=== PATIENT | female | born 1950 | race Caucasian/White ===

== ENCOUNTER 2018-03-16 20:30 | Outpatient (CLI) | payer BC | END 2018-03-16 20:31 | disposition home or self-care (01) | LOC: SLEEPLAB 20:30 | PROVIDERS: ATTEND Internal Medicine Critical Care Medicine | DX: G47.33 Obstructive sleep apnea (adult) (pediatric) (principal); G47.30 Sleep apnea, unspecified; R53.83 Other fatigue; R06.83 Snoring; G47.61 Periodic limb movement disorder; G47.10 Hypersomnia, unspecified; R94.31 Abnormal electrocardiogram [ECG] [EKG] | CPT/HCPCS: 95810 ==

== ENCOUNTER 2020-08-16 04:14 | Emergency (ER) | payer MEDICARE ==
[2020-08-16] MEDS ORDERED: Ondansetron ODT 8 MG TAB ONE (04:28)
[2020-08-16] MEDS ORDERED: Morphine 10 MG/ML VIAL ONE (04:28)
--- NOTE | 2020-08-16 07:55 | RAD ---
XR Ribs Lt>=2 View W/PA CXR History: Trauma Comparison: None. Findings: Mild biapical pleural scarring. No pneumothorax. Clavicles are intact. Cardiac silhouette and mediastinal contours are relatively normal. Practically nondisplaced left anterior ninth and 10th rib fractures. Impression: Practically nondisplaced left anterior ninth and 10th rib fractures.
== END 2020-08-16 04:57 | disposition home or self-care (01) ==
LOC: ERS 04:14
DX: S20.212A Contusion of left front wall of thorax, initial encounter (principal); K21.9 Gastro-esophageal reflux disease without esophagitis; I10 Essential (primary) hypertension; E03.9 Hypothyroidism, unspecified; Z79.899 Other long term (current) drug therapy; W01.0XXA Fall on same level from slipping, tripping and stumbling without subsequent striking against object, initial encounter
CPT/HCPCS: 96372; J2270; Q0162

== ENCOUNTER 2021-01-20 15:55 | Outpatient (CLI) | payer MEDICARE, BC | END 2021-01-20 15:56 | disposition home or self-care (01) | LOC: BICRAD 15:55 | PROVIDERS: ATTEND Otolaryngology Plastic Surgery within the Head & Neck | DX: R05 Cough (principal) | CPT/HCPCS: 71046 ==

== ENCOUNTER 2021-03-19 10:52 | Outpatient (CLI) | payer MEDICARE, BC | END 2021-03-19 10:53 | disposition home or self-care (01) | LOC: BICRAD 10:52 | PROVIDERS: ATTEND Internal Medicine Critical Care Medicine | DX: R06.00 Dyspnea, unspecified (principal) | CPT/HCPCS: 71046 ==

== ENCOUNTER 2022-07-29 11:59 | Observation (INO) | payer MEDICARE, BC ==
[2022-07-29 12:44] LABS: #Lymphocytes 0.6 thou/uL (1.20-3.40); #Monocytes 0.4 thou/uL (0.11-0.59); #Neutrophils 5.5 thou/uL (1.40-6.50); %Basophils 0.3 % (0.0-1.0); %Eosinophils 0.1 % (0.0-10.0); %Lymphocytes 9.2 % (21.0-51.0); %Neutrophils 84.5 % (42.0-75.0); Hemoglobin 12.9 g/dL (12.0-16.0); Mean Corpuscular HGB CONC 33.1 g/dL (32.0-36.0); Mean Corpuscular Hemoglobin 31.1 pg (27.0-31.0); Mean Corpuscular Volume 94.2 fl (78.0-98.0); Platelet Count 213 10x3/uL (130-400); RBC Distribution Width 12.4 % (11.5-14.5); Red Blood Cell (RBC) Count 4.15 mill/uL (4.20-5.40); White Blood Cell (WBC) Count 6.6 10x3/uL (4.8-10.8)
[2022-07-29 13:02] LABS: ALT (SGPT) 23 U/L (8-55); AST (SGOT) 25 U/L (5-34); Albumin 3.6 g/dL (3.4-4.8); Alkaline Phosphatase 59 U/L (40-110); Anion Gap 9 mmol/L (10-20); BUN (Urea Nitrogen) 12 mg/dL (9.8-20.1); Bilirubin, Total 0.7 mg/dL (0.2-1.2); Calc. Creatinine Clearance 0 mL/min (70-130); Calcium 8.9 mg/dL (7.8-10.44); Carbon Dioxide 24 mmol/L (23-31); Chloride 103 mmol/L (98-107); Estimated GFR 80; Globulin 3.2 g/dL (2.4-3.5); Glucose 134 mg/dL (80-115); Potassium 4.2 mmol/L (3.5-5.1); Protein, Total 6.8 g/dL (5.8-8.1); Sodium 132 mmol/L (136-145)
[2022-07-29 13:58] LABS: Bilirubin Negative (Negative); Blood, Urine Negative (Negative); Glucose, Urine (Dipstick) Negative (Negative); Ketone, Urine Trace mg/dL (Negative); Leukocyte Negative (Negative); Nitrite Negative (Negative); Protein, Urine (Dipstick) Negative (Neg-Trace); Specific Gravity, Urine 1.015 (1.005-1.030); Urobilinogen 0.2 mg/dL (Less than 2)
[2022-07-29 14:01] LABS: Clarity Clear (Clear)
[2022-07-29] MEDS ORDERED: Acetaminophen 325 MG TAB PO PRN (15:35)
[2022-07-29] MEDS ORDERED: Senokot S 8.6-50 MG TAB PO PRN (15:35)
[2022-07-29 17:21] VITALS: BMI 25.3
[2022-07-29] MEDS: Sodium Chloride 0.9% 1,000 ML IV SCH (18:06)
[2022-07-29 18:11] LABS: Troponin I Less than 0.010 ng/mL (< 0.028)
[2022-07-29 20:43] LABS: Troponin I Less than 0.010 ng/mL (< 0.028)
[2022-07-29] MEDS ORDERED: Famotidine 20 MG TAB PO SCH (21:00)
[2022-07-30 05:16] LABS: #Eosinphils 0.1 thou/uL (0.0-0.7); #Lymphocytes 0.9 thou/uL (1.20-3.40); #Monocytes 0.4 thou/uL (0.11-0.59); %Basophils 0.3 % (0.0-1.0); %Eosinophils 1.6 % (0.0-10.0); %Lymphocytes 27.2 % (21.0-51.0); %Monocytes 11.5 % (0.0-10.0); %Neutrophils 59.4 % (42.0-75.0); Mean Corpuscular HGB CONC 33.1 g/dL (32.0-36.0); Mean Corpuscular Hemoglobin 30.9 pg (27.0-31.0); Mean Corpuscular Volume 93.4 fl (78.0-98.0); Mean Platelet Volume 7.1 fL (7.4-10.4); Platelet Count 176 10x3/uL (130-400); RBC Distribution Width 12.6 % (11.5-14.5); White Blood Cell (WBC) Count 3.3 10x3/uL (4.8-10.8)
[2022-07-30 05:39] LABS: Anion Gap 10 mmol/L (10-20); BUN (Urea Nitrogen) 11 mg/dL (9.8-20.1); Calc. Creatinine Clearance 72 mL/min (70-130); Carbon Dioxide 23 mmol/L (23-31); Cardiac Risk 3.1 (Less than 4.5); Chloride 108 mmol/L (98-107); Cholesterol 110 mg/dl (< 200 Desired); Estimated GFR 87; Glucose 97 mg/dL (80-115); HDL Cholesterol 35 mg/dL (>60 Neg Risk); LDL Cholesterol, Calculated 59 mg/dL; Potassium 3.8 mmol/L (3.5-5.1); Sodium 137 mmol/L (136-145); Triglycerides 81 mg/dL (Less than 150)
[2022-07-30] MEDS: Sodium Chloride 0.9% 1,000 ML IV SCH (07:17)
[2022-07-30] MEDS ORDERED: Levothyroxine Sodium 25 MCG TAB PO SCH (08:45)
[2022-07-30] MEDS ORDERED: Aspirin 81 mg Enteric Coated Tablet PO SCH (09:00)
[2022-07-30] MEDS ORDERED: Enoxaparin Sodium 40 MG/0.4 ML SYRINGE SC SCH (09:00)
[2022-07-30] MEDS ORDERED: Montelukast Sodium 10 mg Tablet PO SCH (09:00)
[2022-07-30] MEDS ORDERED: Magnevist 469MG/ML 20 ML VIAL ONE (10:55)
[2022-07-30 15:50] VITALS: BP 134/62; TEMP 98.4
[2022-07-30] MEDS ORDERED: Atorvastatin Calcium 20 MG TAB PO SCH (21:00)
[2022-07-31] MEDS ORDERED: Levothyroxine Sodium 25 MCG TAB PO SCH (06:00)
== END 2022-07-30 16:30 | disposition home or self-care (01) ==
LOC: ERS 11:59 → 2SW 14:55
PROVIDERS: ADMIT Family Medicine; ATTEND Family Medicine
DX: R55 Syncope and collapse (principal); E87.1 Hypo-osmolality and hyponatremia; I10 Essential (primary) hypertension; E03.9 Hypothyroidism, unspecified; E78.5 Hyperlipidemia, unspecified; K21.9 Gastro-esophageal reflux disease without esophagitis; Z79.82 Long term (current) use of aspirin; Z79.890 Hormone replacement therapy; Z79.899 Other long term (current) drug therapy; Z20.822 Contact with and (suspected) exposure to COVID-19
CPT/HCPCS: 70551; 70552; 71045; 80048; 80053; 80061; 81003; 82533; 84443; 84484 ×2; 85025 ×2; 93005; 93880; 99285; U0003; U0005; 36415; A9579; G0378; J7050

== ENCOUNTER 2023-06-24 10:48 | Emergency (ER) | payer MEDICARE, BC ==
[2023-06-24 11:56] LABS: #Monocytes 0.5 thou/uL (0.11-0.59); #Neutrophils 5.9 thou/uL (1.40-6.50); %Basophils 0.4 % (0.0-1.0); %Eosinophils 0.1 % (0.0-10.0); %Lymphocytes 9.1 % (21.0-51.0); %Monocytes 7.1 % (0.0-10.0); %Neutrophils 82.9 % (42.0-75.0); Hematocrit 43.5 % (36.0-47.0); Hemoglobin 14.6 g/dL (12.0-16.0); Mean Corpuscular HGB CONC 33.6 g/dL (32.0-36.0); Mean Corpuscular Volume 92.4 fl (78.0-98.0); Mean Platelet Volume 9.4 fL (7.4-10.4); Platelet Count 187 10x3/uL (130-400); RBC Distribution Width 12.5 % (11.5-14.5); Red Blood Cell (RBC) Count 4.71 mill/uL (4.20-5.40); White Blood Cell (WBC) Count 7.2 10x3/uL (4.8-10.8)
[2023-06-24 12:22] LABS: Troponin I Less than 0.010 ng/mL (< 0.028)
[2023-06-24 12:28] LABS: ALT (SGPT) 23 U/L (8-55); AST (SGOT) 23 U/L (5-34); Albumin 4.5 g/dL (3.4-4.8); Alkaline Phosphatase 69 U/L (40-110); Anion Gap 16 mmol/L (10-20); BUN (Urea Nitrogen) 14 mg/dL (9.8-20.1); Bilirubin, Total 0.6 mg/dL (0.2-1.2); Calc. Creatinine Clearance 0 mL/min (70-130); Calcium 9.6 mg/dL (7.8-10.44); Carbon Dioxide 22 mmol/L (23-31); Chloride 102 mmol/L (98-107); Estimated GFR 67; Globulin 3.1 g/dL (2.4-3.5); Glucose 140 mg/dL (83-110); Potassium 4.5 mmol/L (3.5-5.1); Protein, Total 7.6 g/dL (5.8-8.1); Sodium 135 mmol/L (136-145)
[2023-06-24 13:03] LABS: Bacteria/HPF None Seen HPF (None Seen); Bilirubin Negative (Negative); Blood, Urine Negative (Negative); CAUTI Indications for Culture Alt mental st,lethar; Clarity Clear (Clear); Glucose, Urine (Dipstick) Normal (Negative); Ketone, Urine 10 mg/dL (Negative); Leukocyte Negative Leu/uL (Negative); Nitrite Negative (Negative); Protein, Urine (Dipstick) 10 mg/dL (Neg-Trace); RBC/HPF 0-3 HPF (0-3); Specific Gravity, Urine 1.017 (1.002-1.036); Squamous Epithelial 0-3 HPF (0-3); Urobilinogen Normal mg/dL (Less than 2); WBC/HPF 0-3 HPF (0-3); pH, Urine 7.5 (5.0-9.0)
[2023-06-24 13:04] LABS: Urine Culture Reflex No No
== END 2023-06-24 13:44 | disposition home or self-care (01) ==
LOC: ERS 10:48
DX: R55 Syncope and collapse (principal); K21.9 Gastro-esophageal reflux disease without esophagitis; I10 Essential (primary) hypertension; E03.9 Hypothyroidism, unspecified; E78.5 Hyperlipidemia, unspecified
CPT/HCPCS: 36415; 71045; 80053; 81001; 84484; 85025; 93005; 96360

== ENCOUNTER 2024-06-18 09:17 | Outpatient (CLI) | payer MEDICARE, BC | END 2024-06-18 09:18 | disposition home or self-care (01) | LOC: BICULT 09:17 | PROVIDERS: ATTEND Urology | DX: N95.2 Postmenopausal atrophic vaginitis (principal); R35.0 Frequency of micturition; R93.429 Abnormal radiologic findings on diagnostic imaging of unspecified kidney | CPT/HCPCS: 76770 ==

== ENCOUNTER 2024-08-07 11:07 | Inpatient (IN) | payer MEDICARE, BC ==
[2024-08-07 11:55] LABS: #Basophils 0.03 10x3/uL (0.0-0.2); %Basophils 0.3 % (0.0-1.0); %Eosinophils 0.3 % (0.0-10.0); %Lymphocytes 18.5 % (21.0-51.0); %Monocytes 8.4 % (0.0-10.0); %Neutrophils 72.1 % (42.0-75.0); Hematocrit 42.2 % (36.0-47.0); Hemoglobin 14.3 g/dL (12.0-16.0); Mean Corpuscular HGB CONC 33.9 g/dL (32.0-36.0); Mean Corpuscular Hemoglobin 30.4 pg (27.0-31.0); Mean Corpuscular Volume 89.6 fL (78.0-98.0); Mean Platelet Volume 9.4 fL (7.4-10.4); Platelet Count 273 10x3/uL (130-400); RBC Distribution Width 12.3 % (11.5-14.5); Red Blood Cell (RBC) Count 4.71 mill/uL (4.20-5.40)
[2024-08-07] MEDS ORDERED: Aspirin Chewable 81 MG TAB ONE (12:07)
[2024-08-07] MEDS ORDERED: Nitroglycerin 0.4 MG TAB 1 EACH ONE ×2 (12:10→12:54)
[2024-08-07 12:14] LABS: ALT (SGPT) 15 U/L (8-55); AST (SGOT) 22 U/L (5-34); Albumin 4.1 g/dL (3.4-4.8); Alkaline Phosphatase 72 U/L (40-110); Anion Gap 15 mmol/L (10-20); BUN (Urea Nitrogen) 16 mg/dL (9.8-20.1); Bilirubin, Total 0.4 mg/dL (0.2-1.2); Calc. Creatinine Clearance 0 mL/min (70-130); Calcium 9.4 mg/dL (7.8-10.44); Carbon Dioxide 22 mmol/L (23-31); Chloride 103 mmol/L (98-107); Estimated GFR 81; Globulin 4.4 g/dL (2.4-3.5); Glucose 90 mg/dL (83-110); Potassium 4.4 mmol/L (3.5-5.1); Protein, Total 8.5 g/dL (5.8-8.1); Sodium 136 mmol/L (136-145)
[2024-08-07 12:19] LABS: Troponin I Less than 0.010 ng/mL (< 0.028)
[2024-08-07] MEDS ORDERED: Acetaminophen 325 MG TAB ONE (12:53)
[2024-08-07] MEDS ORDERED: Morphine 4 MG/ML VIAL ONE (12:54)
[2024-08-07] MEDS ORDERED: Acetaminophen 325 MG TAB PO PRN (12:54)
[2024-08-07 14:45] VITALS: BMI 28.7
[2024-08-07 16:11] LABS: Troponin I Less than 0.010 ng/mL (< 0.028)
[2024-08-07 18:41] LABS: Troponin I Less than 0.010 ng/mL (< 0.028)
[2024-08-07] MEDS: Atorvastatin Calcium 20 MG TAB PO SCH (20:58)
[2024-08-07] MEDS: Nitroglycerin 0.4 MG TAB (25 Tab Bottle) SL PRN (23:14)
[2024-08-07] MEDS: Lidocaine 2% Viscous Solution 10 ML, Aluminum & Magnesium Hydroxide 30 ML SSW SCH (23:52)
[2024-08-07] MEDS: Nitroglycerin 2% Ointment 1 INCH/1 GM Packet TOP SCH (23:52)
[2024-08-08 00:32] LABS: Troponin I Less than 0.010 ng/mL (< 0.028)
[2024-08-08] MEDS: Levothyroxine Sodium 25 MCG TAB PO SCH (05:10)
[2024-08-08 06:43] LABS: Anion Gap 13 mmol/L (10-20); BUN (Urea Nitrogen) 20 mg/dL (9.8-20.1); Calc. Creatinine Clearance 78 mL/min (70-130); Calcium 9.6 mg/dL (7.8-10.44); Carbon Dioxide 19 mmol/L (23-31); Cardiac Risk 3.1 (Less than 4.5); Chloride 108 mmol/L (98-107); Cholesterol 153 mg/dl (< 200 Desired); Estimated GFR 83; Glucose 126 mg/dL (83-110); HDL Cholesterol 49 mg/dL (>60 Neg Risk); LDL Cholesterol, Calculated 79 mg/dL; Potassium 4.1 mmol/L (3.5-5.1); Sodium 136 mmol/L (136-145); Triglycerides 124 mg/dL (Less than 150)
[2024-08-08] MEDS: Aspirin Chewable 81 MG TAB PO SCH (08:16)
[2024-08-08] MEDS: Oxybutynin ER 5 MG TAB PO SCH (08:16)
[2024-08-08] MEDS ORDERED: Montelukast Sodium 10 mg Tablet PO PRN (08:44)
[2024-08-08] MEDS: Pantoprazole DR 40 MG TAB PO SCH ×2 (10:13→20:24)
[2024-08-09] MEDS: Sodium Chloride 0.9% 500 ML IV SCH ×2 (00:19→12:39)
[2024-08-09 05:00] LABS: #Basophils 0.03 10x3/uL (0.0-0.2); %Basophils 0.5 % (0.0-1.0); %Eosinophils 0.8 % (0.0-10.0); %Lymphocytes 26.5 % (21.0-51.0); %Monocytes 8.9 % (0.0-10.0); Hematocrit 42.2 % (36.0-47.0); Hemoglobin 14.3 g/dL (12.0-16.0); Mean Corpuscular HGB CONC 33.9 g/dL (32.0-36.0); Mean Corpuscular Hemoglobin 30.4 pg (27.0-31.0); Mean Corpuscular Volume 89.8 fL (78.0-98.0); Mean Platelet Volume 9.5 fL (7.4-10.4); Platelet Count 232 10x3/uL (130-400); RBC Distribution Width 12.3 % (11.5-14.5)
[2024-08-09 05:20] LABS: Anion Gap 14 mmol/L (10-20); BUN (Urea Nitrogen) 23 mg/dL (9.8-20.1); Calc. Creatinine Clearance 71 mL/min (70-130); Calcium 9.2 mg/dL (7.8-10.44); Carbon Dioxide 21 mmol/L (23-31); Chloride 106 mmol/L (98-107); Estimated GFR 75; Glucose 112 mg/dL (83-110); Magnesium 2.1 mg/dL (1.6-2.6); Potassium 4.1 mmol/L (3.5-5.1); Sodium 137 mmol/L (136-145)
[2024-08-09] MEDS ORDERED: Communication Order-Pharmacy FS SCH (06:00)
[2024-08-09] MEDS ORDERED: Heparin 10,000 UNITS/ 10 ML VIAL ONE (09:46)
[2024-08-09] MEDS ORDERED: fentaNYL 50 mcg/mL 1 mL Vial ONE (09:46)
[2024-08-09] MEDS ORDERED: Midazolam HCl 2 mg/2 ml Vial ONE (09:46)
[2024-08-09] MEDS ORDERED: Verapamil 5 MG/2 ML VIAL ONE (09:46)
[2024-08-09] MEDS ORDERED: Nitroglycerin 50 MG/250 ML BOT 250 ML ONE (09:47)
[2024-08-09] MEDS ORDERED: Iopamidol 370 76% 100 ML VIAL ONE (10:26)
[2024-08-09] MEDS ORDERED: Acetaminophen/Codeine 30-300mg Tablet PO PRN (11:34)
[2024-08-09] MEDS ORDERED: Sodium Chloride 0.9% 200 ML IV PRN (11:34)
[2024-08-09 15:59] VITALS: BP 143/80; TEMP 97.3
== END 2024-08-09 18:52 | disposition home or self-care (01) | DRG 287 ==
LOC: ERS 11:07 → ERHOLD 12:57 → OBS 14:43 → OBSVTOIN 08-09 15:46
PROVIDERS: ADMIT Family Medicine; ATTEND Internal Medicine
PROC: 4A023N7 Measurement of Cardiac Sampling and Pressure, Left Heart, Percutaneous Approach (ICD-10-PCS; principal; 2024-08-09)
PROC: B2111ZZ Fluoroscopy of Multiple Coronary Arteries using Low Osmolar Contrast (ICD-10-PCS; 2024-08-09)
PROC: B2151ZZ Fluoroscopy of Left Heart using Low Osmolar Contrast (ICD-10-PCS; 2024-08-09)
DX: R07.89 Other chest pain (principal); E03.9 Hypothyroidism, unspecified; N32.81 Overactive bladder; K44.9 Diaphragmatic hernia without obstruction or gangrene; K21.9 Gastro-esophageal reflux disease without esophagitis; I10 Essential (primary) hypertension; E78.5 Hyperlipidemia, unspecified; I44.0 Atrioventricular block, first degree; Z79.899 Other long term (current) drug therapy; Z79.82 Long term (current) use of aspirin; Z90.710 Acquired absence of both cervix and uterus; Z98.51 Tubal ligation status; Z90.49 Acquired absence of other specified parts of digestive tract; Z98.49 Cataract extraction status, unspecified eye
CPT/HCPCS: 36415; 36416; 71045; 80048; 80053; 80061; 83690; 83735; 83880; 84443; 84484; 85025; 93005; 93010; 93458; 94760; 96374; 99152; C1769; C1894; G0378; J1644; J2250; J2272; J3010; Q9967

== ENCOUNTER 2024-10-22 12:14 | Outpatient (CLI) | payer MEDICARE, BC | END 2024-10-22 12:15 | disposition home or self-care (01) | LOC: BICMAMMO 12:14 | PROVIDERS: ATTEND Internal Medicine | DX: Z12.31 Encounter for screening mammogram for malignant neoplasm of breast (principal); N64.89 Other specified disorders of breast | CPT/HCPCS: 77063; 77067 ==

== ENCOUNTER 2025-03-21 09:09 | Outpatient (CLI) | payer MEDICARE, BC | END 2025-03-21 09:10 | disposition home or self-care (01) | LOC: RAD 09:09 | PROVIDERS: ATTEND Internal Medicine Critical Care Medicine | DX: R06.00 Dyspnea, unspecified (principal) | CPT/HCPCS: 71046 ==